=== PATIENT | male | born 1970 | race Two or more races ===

== ENCOUNTER 2018-07-16 21:57 | Emergency (ER) | payer SELFPAY ==
[~2018-07-16] VITALS: Ht 162.6 cm; Wt 85.3 kg
[2018-07-16] MEDS ORDERED: HYDROCODONE/APAP 5/325MG 1 EACH TABLET PO ONE (22:30)
[2018-07-16] MEDS ORDERED: HYDROCODONE/APAP 5/325MG 1 EACH TABLET ONE (22:34)
[2018-07-16 23:41] VITALS: BP 138/92
[2018-07-17] MEDS ORDERED: IBUPROFEN 600 MG TABLET PO ONE ×2 (00:13)
== END 2018-07-17 00:56 | disposition home or self-care (01) ==
LOC: ER 22:00
DX: M75.22 Bicipital tendinitis, left shoulder (principal)
CPT/HCPCS: 73030; 93005; 99283; A4606